=== PATIENT | male | born 1980 | race Caucasian/White ===

== ENCOUNTER 2021-06-26 13:01 | Emergency (ER) | payer SELFPAY ==
--- NOTE | ~2021-06-26 | XR_ITS ---
EXAMINATION: XR chest 2V DATE: 06/26/2021 13:35 INDICATION: Chest pain TECHNIQUE: AP and lateral views of the chest are obtained. COMPARISON: None available FINDINGS: There are minimal airspace opacities of the left lung zone. There is no pleural effusion or pneumothorax. The cardiomediastinal silhouette is normal. The visualized bones and soft tissues are unremarkable. IMPRESSION: 1. Airspace opacities of the left lung, consistent with atelectasis versus pneumonia. Reviewed, dictated and finalized at location B. IMPRESSION: 1. Airspace opacities of the left lung, consistent with atelectasis versus pneu monia.
[2021-06-26 13:07] VITALS: BP 143/82; PULSE 55; RESP 18; TEMP 36.9; O2SAT 100
--- NOTE | 2021-06-26 13:07 | ECG_ITS ---
Measurements Intervals [place] Rate: 70 P: 73 ID: [id number] QRS: 30 QRSD: 104 T: 48 QT: 404 QTc: 437 Interpretive Statements SINUS RHYTHM CANNOT RULE OUT SEPTAL INFARCT, AGE INDETERMINATE BASELINE ARTIFACT- I, III, AVL, AVF, V2, V4-V6 ABNORMAL ECG Electronically Signed On 06-26-2021 13:31:23 CDT by Mart Barrientos D.O.
[2021-06-26 13:10] VITALS: PULSE 62
[2021-06-26 13:27] LABS: Basophils Percent Auto 0.2 % (0.2-1.2); Eosinophils Percent Auto 0.3 % (0-4.4); Hematocrit 39.2 % (42.0-52.0); Hemoglobin 12.8 g/dL (14.0-18.0); Immature Granulocyte Absolute 0.03 K/mm3 (0.00-0.031); Immature Granulocyte Percent A 0.3 % (0-0.5); Lymphocytes Absolute Auto 1.76 K/mm3 (0.9-3.2); Lymphocytes Percent Auto 16.6 % (18.3-44.2); Mean Corpuscular HGB Conc 32.7 g/dl (32-36); Mean Corpuscular Hemoglobin 28.3 pg (26-34); Mean Corpuscular Volume 86.5 fl (80-100); Mean Platelet Volume 9.2 fl (7.4-10.4); Monocytes Absolute Auto 0.7 K/mm3 (0.1-0.6); Monocytes Percent Auto 6.2 % (2.6-8.5); Neutrophils Absolute Auto 8.1 K/mm3 (1.3-6.7); Neutrophils Percent Auto 76.4 % (45.5-73.1); Platelet Count Result 296 k/mm3 (150-375); Red Blood Count 4.53 M/mm3 (4.6-6.20); Red Cell Distribution Width 12.4 % (11.5-14.5); White Blood Count 10.6 K/mm3 (4.5-10.0)
[2021-06-26 13:37] LABS: Alanine Aminotransferase 56 U/L (4-50); Albumin Level 4.4 g/dL (3.5-5.1); Alkaline Phosphatase 86 U/L (38-126); Anion Gap 6 mmol/L (8-16); Aspartate Amino Transferase 49 U/L (17-59); Bilirubin,Total 0.7 mg/dL (0.2-1.3); Blood Urea Nitrogen 10 mg/dL (9-20); Calcium 9.3 mg/dL (8.4-10.2); Carbon Dioxide 24 mmol/L (22-30); Chloride 107 mmol/L (98-107); Estimated CRCL calculation 116 ml/min; Estimated Glomerular Filt Rate > 60; Glucose 113 mg/dL (65-110); Potassium 3.6 mmol/L (3.4-5.0); Sodium 137 mmol/L (137-145)
[2021-06-26 13:44] LABS: INR 0.9; Prothrombin Time 12.5 Seconds (11.1-14.7)
[2021-06-26 13:45] LABS: Partial Thromboplastin Time 29.5 SECONDS (22.3-36.8)
[2021-06-26 13:48] LABS: NT Pro B Type Natriuretic Pept 59 pg/mL (5-100); Troponin I < 0.012 ng/mL (0.000-0.034)
--- NOTE | 2021-06-26 14:12 | ED.CHESTPAIN ---
HPI - Chest Pain General Chief Complaint: Chest Pain Stated Complaint: CP Time Seen by Provider: 06/26/21 13:07 Source: patient Mode of arrival: other (Police) Limitations: no limitations History of Present Illness HPI narrative: 41-year-old with a history of opioid abuse was brought in by PD from the halfway with complaints of midsternal chest pain started this morning. Patient states that pain comes on sporadically and its been steady since this morning. He denies any trauma. No history of fever or chills no history of fever. Denies cough. MD complaint: chest pain Timing of current episode: episodic Pain location: other (Sternal) Pain radiation: none Severity: moderate Quality: aching Relieving factors: nothing Risk Factors Coronary artery disease risk factors: none Thoracic aortic dissection risk factors: none Related Data Allergies Allergy/AdvReac Type Severity Reaction Status Date / Time Penicillins AdvReac Hives Verified 06/26/21 13:11 Review of Systems Review of Systems: All systems reviewed & are unremarkable except as noted in HPI and below Constitutional: Constitutional: Reports no additional constitutional complaints Eyes: Eyes: Reports no additional eye complaints ENT: Reports system reviewed and no additional complaints, except as documented Cardiovascular: Cardiovascular: Reports as per HPI Respiratory: Respiratory: Reports no additional respiratory complaints Gastrointestinal: Gastrointestinal: Reports no additional gastrointestinal complaints Musculoskeletal: Musculoskeletal: Reports no additional musculoskeletal complaints Neurologic: Reports system reviewed and no additional complaints, except as documented Exam Narrative: GENERAL: Well-appearing, well-nourished, and in no acute distress. Multiple tattoos all over the body HEAD: Normocephalic, atraumatic. EYES: PERRLA and EOMI. NECK: Supple. CHEST: Clear to auscultation. No respiratory distress. HEART: Regular rate and rhythm. No murmur heard. Normal peripheral pulses. ABDOMEN: Soft, nontender, nondistended, normal active bowel sounds. EXTREMITIES: Normal range of motion. No edema. SKIN: Warm, dry, no rash. NEURO: No focal deficits. Alert and oriented x3. PSYCH: Normal mood and affect. Course Course Emergency Course: Patient comfortably resting on the bed with no complaints. Informed him about his lab work, chest x-ray and EKG findings advised him to take ibuprofen patient will be returned back to the halfway. Vital Signs Vital signs: Vital Signs Temperature 36.9 C 06/26/21 13:07 Pulse Rate 55 L 06/26/21 13:07 Respiratory Rate 18 06/26/21 13:07 Blood Pressure 143/82 H 06/26/21 13:07 Pulse Oximetry 100 06/26/21 13:07 Temperature 36.9 C 06/26/21 13:07 Pulse Rate 62 06/26/21 13:10 Respiratory Rate 18 06/26/21 13:07 Blood Pressure 143/82 H 06/26/21 13:07 Pulse Oximetry 100 06/26/21 13:07 MDM - Chest Pain MDM Narrative Medical decision making narrative: With a history of chest pain went to elect to do cardiac work-up. Patient presently states his pain is tolerable. Differential Diagnosis Differential diagnosis: Likely fracture of rib, atypical chest pain and chest pain Lab Data Result diagrams: 06/26/21 13:19 06/26/21 13:19 Labs: Lab Results 06/26/21 06/26/21 06/26/21 Range/Units 13:19 13:19 13:19 WBC 10.6 H (4.5-10.0) K/mm3 RBC 4.53 L (4.6-6.20) M/mm3 Hgb 12.8 L (14.0-18.0) g/dL Hct 39.2 L (42.0-52.0) % MCV 86.5 (80-100) fl MCH 28.3 (26-34) pg MCHC 32.7 (32-36) g/dl RDW 12.4 (11.5-14.5) % Plt Count 296 (150-375) k/mm3 MPV 9.2 (7.4-10.4) fl Immature Gran % (Auto) 0.3 (0-0.5) % Neut % (Auto) 76.4 H (45.5-73.1) % Lymph % (Auto) 16.6 L (18.3-44.2) % Chambers % (Auto) 6.2 (2.6-8.5) % Eos % (Auto) 0.3 (0-4.4) % Baso % (Auto) 0.2 (0.2-1.2) % Lymph # (Auto) 1.76 (0.9-3.2) K/mm3 Chambers # (
[2021-06-26 14:41] VITALS: BP 144/77; PULSE 80; RESP 15; O2SAT 100
[2021-06-26 17:14] LABS: Alanine Aminotransferase 56 U/L (4-50); Albumin Level 4.3 g/dL (3.5-5.1); Alkaline Phosphatase 86 U/L (38-126); Anion Gap 9 mmol/L (8-16); Aspartate Amino Transferase 51 U/L (17-59); Bilirubin,Total 0.5 mg/dL (0.2-1.3); Blood Urea Nitrogen 10 mg/dL (9-20); Calcium 9.1 mg/dL (8.4-10.2); Carbon Dioxide 22 mmol/L (22-30); Chloride 103 mmol/L (98-107); Estimated CRCL calculation 116 ml/min; Estimated Glomerular Filt Rate > 60; Glucose 112 mg/dL (65-110); Potassium 3.4 mmol/L (3.4-5.0); Sodium 134 mmol/L (137-145)
[2021-06-26 17:23] LABS: NT Pro B Type Natriuretic Pept 57 pg/mL (5-100)
== END 2021-06-26 14:42 ==
PROVIDERS: Emergency Provider Family Medicine
DX: R07.89 Other chest pain (principal); R94.31 Abnormal electrocardiogram [ECG] [EKG]; R91.8 Other nonspecific abnormal finding of lung field
CPT/HCPCS: 36415; 71046; 80048; 80053; 80076; 83880; 84484; 85025; 85610; 85730; 93005; 99284